=== PATIENT | female | born 1960 | race Caucasian/White ===

== ENCOUNTER 2019-09-22 12:23 | Emergency (ER) | payer OTHER ==
[~2019-09-22] VITALS: Ht 167.6 cm; Wt 62.1 kg
[2019-09-22] MEDS ORDERED: SYNTHROID200 MCG (13:07)
[2019-09-22] MEDS ORDERED: NORVASC2.5 M1 (13:07)
[2019-09-22] MEDS ORDERED: NASAL MIST126 ML (13:07)
[2019-09-22] MEDS ORDERED: SKELAXIN800 MG (13:08)
== END 2019-09-22 15:39 | disposition home or self-care (01) ==
LOC: ER 12:23
DX: M51.26 Other intervertebral disc displacement, lumbar region (principal)